=== PATIENT | male | born 1965 | race Caucasian/White ===

== ENCOUNTER 2018-10-19 20:21 | Emergency (ER) | payer MEDICAID ==
[2018-10-19 20:31] VITALS: BP 120/81
[2018-10-19] MEDS ORDERED: SULFAMETH/TRIMETH DS 800/160 MG TABLET PO STA (20:32)
--- NOTE | 2018-10-19 20:34 | ED Physician Documentation ---
PD HPI WOUND RECHECK - Stated complaint Stated Complaint: R KNEE ABCESS - Chief complaint Chief Complaint: Wound - Histroy obtained from History obtained from: Patient - History of Present Illness Location: Right Lower Extremity (His girlfriend is currently hospitalized with an MRSA infection. He has 2 tiny pustules on the anterior right leg without fevers or chills. He has no personal history of MRSA.) Review of Systems Constitutional: reports: Reviewed and negative Cardiac: reports: Reviewed and negative Respiratory: reports: Reviewed and negative PD PAST MEDICAL HISTORY - Present Medications Home Medications: Ambulatory Orders Medication Instructions Recorded Confirmed Chlorhexidine Gluconate [Hibiclens] 10 ml TP DAILY #236 ml 10/19/18 Sulfamethoxazole/Trimethoprim 1 each PO BID #14 tablet 10/19/18 [Sulfamethoxazole-Tmp Ds Tablet] - Allergies Allergies/Adverse Reactions: Allergies Allergy/AdvReac Type Severity Reaction Status Date / Time No Known Drug Allergies Allergy Verified 10/19/18 20:31 PD ED PE NORMAL - Vitals Vital signs reviewed: Yes - General General: Alert and oriented X 3, No acute distress - Extremities Extremities: Other (There are 2 tiny pointed pustules low the right knee anteriorly, neither of which have cellulitis. 1 of which was needled during examination for a culture.) - Neuro Neuro: Alert and oriented X 3, Normal speech Results - Vitals Vitals: Vital Signs - 24 hr 10/19/18 20:27 Temperature 36.7 C Heart Rate 85 Respiratory 18 Rate Blood Pressure 120/81 H O2 Saturation 96 Oxygen O2 Source Room air Departure - Departure Disposition: Home, Self Care Clinical Impression: Folliculitis Condition: Good Record reviewed to determine appropriate education?: Yes Instructions: ED Staph Infec Abx Tx Only Prescriptions: Chlorhexidine Gluconate [Hibiclens] 10 ml TP DAILY #236 ml Sulfamethoxazole/Trimethoprim [Sulfamethoxazole-Tmp Ds Tablet] 1 each PO BID #14 tablet Comments: We are performing a wound culture, the results should be done in 48-72 hours. If antibiotic change is necessary we will call you. Return if worse in the meantime, especially if you develop increased pain, fevers, cannot keep down the medication. Otherwise follow-up with your physician in approximately 2-3 days.
== END 2018-10-19 20:41 | disposition home or self-care (01) ==
LOC: ED 20:21
DX: L73.9 Follicular disorder, unspecified (principal)
CPT/HCPCS: 87070; 87181; 87205; 99283; A9270

== ENCOUNTER 2018-10-25 19:34 | Emergency (ER) | payer MEDICAID ==
--- NOTE | 2018-10-25 20:29 | ED Physician Documentation ---
PD HPI SKIN - Stated complaint Stated Complaint: MRSA MED REFILL - Chief complaint Chief Complaint: Wound - History obtained from History obtained from: Patient - History of Present Illness Timing - onset: Other (His girlfriend had a MRSA infection. I saw him 6 days ago for some little pustules and they cultured out MRSA. He is been on Bactrim but is worsening. There is some redness around the one on the knee, but no fevers or chills.) Review of Systems Constitutional: denies: Fever, Chills Throat: denies: Dental pain / toothache, Sore throat Cardiac: denies: Chest pain / pressure, Palpitations Respiratory: denies: Dyspnea, Cough PD PAST MEDICAL HISTORY - Past Medical History Past Medical History: No - Past Surgical History Past Surgical History: No - Present Medications Home Medications: Ambulatory Orders Medication Instructions Recorded Confirmed Chlorhexidine Gluconate [Hibiclens] 10 ml TP DAILY #236 ml 10/19/18 Sulfamethoxazole/Trimethoprim 1 each PO BID #14 tablet 10/19/18 [Sulfamethoxazole-Tmp Ds Tablet] Chlorhexidine Gluconate [Hibiclens] 10 ml TP DAILY #1 bot 10/25/18 Doxycycline Hyclate 100 mg PO BID #30 capsule 10/25/18 Mupirocin 1 gm FLORENCIA TID #2 oin.pf.nelson 10/25/18 rifAMPin [Rifampin] 300 mg PO TID #45 capsule 10/25/18 - Allergies Allergies/Adverse Reactions: Allergies Allergy/AdvReac Type Severity Reaction Status Date / Time No Known Drug Allergies Allergy Verified 10/19/18 20:31 - Social History Does the pt smoke?: Yes Smoking Status: Current every day smoker Does the pt drink ETOH?: Yes Does the pt have substance abuse?: No PD ED PE NORMAL - Vitals Vital signs reviewed: Yes - General General: Alert and oriented X 3, No acute distress - Extremities Extremities: Other (There is cellulitis about 2 cm around on the anterior R knee. No tenderness or limited range of motion. There is a tiny little lesion in the left armpit. No cellulitis there.) - Neuro Neuro: Alert and oriented X 3, Normal speech Results - Vitals Vitals: Vital Signs - 24 hr 10/25/18 19:43 Temperature 37 C Heart Rate 81 Respiratory 16 Rate Blood Pressure 124/62 O2 Saturation 96 Oxygen O2 Source Room air Departure - Departure Disposition: Home, Self Care Clinical Impression: MRSA (methicillin resistant staph aureus) culture positive Cellulitis Qualifiers: Site of cellulitis: extremity Site of cellulitis of extremity: lower extremity Laterality: right Qualified Code(s): L03.115 - Cellulitis of right lower limb Condition: Good Record reviewed to determine appropriate education?: Yes Instructions: Cellulitis Dc Prescriptions: Chlorhexidine Gluconate [Hibiclens] 10 ml TP DAILY #1 bot Doxycycline Hyclate 100 mg PO BID #30 capsule Mupirocin 1 gm FLORENCIA TID #2 oin.pf.nelson rifAMPin [Rifampin] 300 mg PO TID #45 capsule Comments: Call your doctor to arrange a follow-up appointment, make the next available appointment. In the interim, return anytime if worse or if new symptoms develop.
[2018-10-25] MEDS ORDERED: rifAMPin 150 MG CAPSULE PO STA (20:31)
[2018-10-25] MEDS ORDERED: DOXYCYCLINE 100 MG TABLET PO STA (20:31)
[2018-10-25 20:53] VITALS: BP 113/54
== END 2018-10-25 20:59 | disposition home or self-care (01) ==
LOC: ED 19:34
DX: L03.115 Cellulitis of right lower limb (principal); B95.62 Methicillin resistant Staphylococcus aureus infection as the cause of diseases classified elsewhere; F17.200 Nicotine dependence, unspecified, uncomplicated
CPT/HCPCS: 99283; A9270